=== PATIENT | female | born 1955 | race Caucasian/White ===

== ENCOUNTER → 2019-06-27 05:58 | Outpatient (CLI) | payer SELFPAY ==
--- NOTE | 2019-06-27 | DI.MRI.S_ITS ---
PROCEDURE: MR ABDOMEN WO/W CON INDICATIONS: Cyst of left kidney, acquired TECHNIQUE: Coronal HASTE through abdomen and pelvis; axial 2D FLASH in- and [id number] (with and without fat saturation), and breath-hold T2 FSE from the hepatic dome to the bottom of the kidneys. Coronal HASTE MR urogram of kidneys and bladder. Dynamic coronal VIBE during IV gadolinium administration; postgadolinium axial VIBE or 2D FLASH with fat saturation from the hepatic dome through the kidneys. COMPARISON: [facility], , CT ABDOMEN/PELVIS WITH CONTRAST, 05/12/2019, 11:11. FINDINGS: Image quality: Excellent. Genitourinary system: Large exophytic left renal cortical cyst previously documented by CT scanning measuring up to 7.7 cm AP, 8.4 cm transverse and 9.9 cm craniocaudad. A single thin septation is seen within. Mild prominence of the central renal pelvis and calyces bilaterally. Other solid organs: No lesion found. Nodes and vessels: No adenopathy or vascular abnormality seen. Bowel and peritoneum: Normal morphology, and no sign of focal mass or inflammation Lung bases: Normal. Bones and soft tissues: No disease process involving the bones or soft tissues is found. IMPRESSION: Large exophytic renal cortical cysts measuring up to 9.9 cm at the upper left kidney, no acute disease. Mild prominence of the central renal pelvis and calyces bilaterally, without evidence of urinary tract obstruction. Dictated by: Daniele Poole M.D. on 06/27/2019 at 15:22 Approved by: Daniele Poole M.D. on 06/27/2019 at 15:28
== END ==
PROVIDERS: Visit Provider Nurse Practitioner Family
DX: N28.1 Cyst of kidney, acquired (principal)
CPT/HCPCS: 74183; A9579